=== PATIENT | female | born 1995 ===

== ENCOUNTER 2021-12-18 08:30 | Outpatient (CLI) | payer OTHER | END 2021-12-18 09:30 | disposition home or self-care (01) | LOC: PRENATAL 08:30 | PROVIDERS: ATTEND Obstetrics & Gynecology Maternal & Fetal Medicine | DX: O36.80X0 Pregnancy with inconclusive fetal viability, not applicable or unspecified (principal); Z36.9 Encounter for antenatal screening, unspecified; Z3A.14 14 weeks gestation of pregnancy; Z88.6 Allergy status to analgesic agent ==

== ENCOUNTER 2022-02-01 15:59 | Outpatient (CLI) | payer OTHER | END 2022-02-01 17:40 | disposition home or self-care (01) | LOC: PRENATAL 15:59 | PROVIDERS: ATTEND Obstetrics & Gynecology Maternal & Fetal Medicine | DX: O35.0XX0 Maternal care for (suspected) central nervous system malformation in fetus, not applicable or unspecified (principal); O35.3XX0 Maternal care for (suspected) damage to fetus from viral disease in mother, not applicable or unspecified; O36.80X0 Pregnancy with inconclusive fetal viability, not applicable or unspecified; Z36.0 Encounter for antenatal screening for chromosomal anomalies; Z3A.20 20 weeks gestation of pregnancy; O99.210 Obesity complicating pregnancy, unspecified trimester; Z88.6 Allergy status to analgesic agent ==

== ENCOUNTER 2022-04-01 16:01 | Outpatient (CLI) | payer OTHER | END 2022-04-01 17:36 | disposition home or self-care (01) | LOC: PRENATAL 16:01 | PROVIDERS: ATTEND Obstetrics & Gynecology Maternal & Fetal Medicine | DX: O26.849 Uterine size-date discrepancy, unspecified trimester (principal) ==

== ENCOUNTER 2023-04-18 14:39 | Outpatient (CLI) | payer OTHER | END 2023-04-18 14:40 | disposition home or self-care (01) | LOC: PRENATAL 14:39 | PROVIDERS: ATTEND Obstetrics & Gynecology Maternal & Fetal Medicine | DX: O35.3XX0 Maternal care for (suspected) damage to fetus from viral disease in mother, not applicable or unspecified (principal); O44.00 Complete placenta previa NOS or without hemorrhage, unspecified trimester; Z36.0 Encounter for antenatal screening for chromosomal anomalies; O34.219 Maternal care for unspecified type scar from previous cesarean delivery; O26.879 Cervical shortening, unspecified trimester; Z3A.28 28 weeks gestation of pregnancy ==

== ENCOUNTER → 2023-06-03 14:26 | Outpatient (CLI) | payer OTHER | END | disposition home or self-care (01) | LOC: PRENATAL 14:26 | PROVIDERS: ATTEND Obstetrics & Gynecology Maternal & Fetal Medicine | DX: O26.849 Uterine size-date discrepancy, unspecified trimester (principal); O36.8199 Decreased fetal movements, unspecified trimester, other fetus; O34.219 Maternal care for unspecified type scar from previous cesarean delivery; Z3A.35 35 weeks gestation of pregnancy ==